=== PATIENT | female | born 1995 | race Caucasian/White ===

== ENCOUNTER 2016-10-19 13:04 | Emergency (ER) | payer SELFPAY ==
[2016-10-19 13:24] VITALS: BP 130/55; PULSE 74; TEMP 97.8; BMI 29.5
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
[2016-10-19] MEDS ORDERED: IBUPROFEN 600 MG TABLET (FP) PO ONE ×2 (13:45→13:46)
== END 2016-10-19 14:29 | disposition home or self-care (01) ==
LOC: FER 13:04
DX: S69.91XA Unspecified injury of right wrist, hand and finger(s), initial encounter (principal); V43.52XA Car driver injured in collision with other type car in traffic accident, initial encounter; Y93.89 Activity, other specified; Y92.410 Unspecified street and highway as the place of occurrence of the external cause
CPT/HCPCS: 73110-TC-RT; 73130-TC-RT; 84703; 99282-25